=== PATIENT | female | born 1930 | race Caucasian/White ===

== ENCOUNTER 2016-05-18 08:43 | Inpatient (IN) | payer MEDICARE ==
[~2016-05-18] VITALS: Ht 165.1 cm; Wt 80.6 kg
[~2016-05-18 08:43] MED LIST: AMLO5TAB2 PO; ASPI-496 BC; ASPI-650 PO; ATOR10TA9 PO; CHOL400T2 PO; ERGO400T3 PO; FERR325T20 PO; FURO20TA3 PO; FURO40TA6 PO; GABA300C10 PO; GLIM2TAB2 PO; INSU100I13 SQ-INSULIN; INSU100I18 SQ-INSULIN; INSU100I28 SQ-INSULIN; INSU100V8 SQ; LISI-167 PO; LISI-170 PO; METO25TA35 PO; POTA10TA PO
[2016-05-18] MEDS ORDERED: PROPOFOL 100 ML IV PRN (08:57)
[2016-05-18] MEDS ORDERED: SUCCINYLCHOLINE 20 MG/ML, 10ML IVPush ONE (09:00)
[2016-05-18] MEDS ORDERED: ETOMIDATE 20 MG/10 ML IV ONE (09:00)
[2016-05-18] MEDS ORDERED: VECURONIUM 10 MG IVPush ONE (09:00)
[2016-05-18] MEDS ORDERED: ALBUTEROL 0.5%, 20ML NPPB SCH (09:30)
[2016-05-18] MEDS ORDERED: methylPREDNISolone SOD SUCC 125 MG/2 ML IVP ONE (09:30)
[2016-05-18] MEDS ORDERED: SODIUM CHLORIDE 0.9% 1,000ML IVBOLUS ONE (09:30)
[2016-05-18] MEDS ORDERED: SODIUM CHLORIDE FLUSH 10ML SYR IVF ONE (09:30)
[2016-05-18 09:42] LABS: ABG COLLECTION SITE LEFT BRACHIAL; COLLATERAL CIRCULATION TESTING NORMAL
[2016-05-18] MEDS ORDERED: methylPREDNISolone SOD SUCC 125 MG/2 ML ONE (09:50)
[2016-05-18 09:55] LABS: HEMOGLOBIN 10.9 g/dL (11.7-16.4)
[2016-05-18 10:09] LABS: ASPARTATE AMINO TRANSFERASE 25 U/L (15-37); BLOOD UREA NITROGEN 73 mg/dL (7-18)
[2016-05-18 10:14] LABS: IS PT STATUS REG ER OR PRE ER? YES
[2016-05-18] MEDS ORDERED: SUCCINYLCHOLINE 20 MG/ML, 10ML ONE ×2 (10:15→15:59)
[2016-05-18] MEDS ORDERED: MIDAZOLAM 1 MG/ML, 5ML ONE (10:15)
[2016-05-18] MEDS ORDERED: VECURONIUM 10 MG ONE ×2 (10:15→15:59)
[2016-05-18] MEDS ORDERED: PROPOFOL 10 MG/ML, 100ML IV ONE ×2 (10:15→15:59)
[2016-05-18] MEDS ORDERED: ASPI325T80 PO (10:40)
[2016-05-18] MEDS ORDERED: ALBUTEROL/IPRATROPIUM 2.5MG/0.5MG, 3 ML ONE (11:12)
[2016-05-18] MEDS: ALBUTEROL/IPRATROPIUM 2.5MG/0.5MG, 3 ML NPPB SCH ×3 (11:34→23:00)
[2016-05-18] MEDS ORDERED: DOCUSATE 100 MG CAPSULE PO PRN (12:00)
[2016-05-18] MEDS ORDERED: OXYcodone IR 5MG TABLET PO PRN (12:00)
[2016-05-18] MEDS ORDERED: LORazepam 2 MG/ML, 1ML IVPush PRN (12:00)
[2016-05-18] MEDS ORDERED: MORPHINE SULFATE 4 MG/ML, 1ML IVPush PRN (12:00)
[2016-05-18] MEDS ORDERED: ACETAMINOPHEN 325 MG TABLET PO PRN (12:00)
[2016-05-18] MEDS ORDERED: ENOXAPARIN 40 MG/0.4 ML SQ SCH (12:00)
[2016-05-18] MEDS ORDERED: POLYETHYLENE GLYCOL 17 GM PACKET PO PRN (12:00)
[2016-05-18] MEDS ORDERED: ONDANSETRON 2MG/ML, 2ML IVP PRN (12:00)
[2016-05-18] MEDS ORDERED: ENALAPRILAT 1.25 MG/ML, 2ML IVPush PRN (12:00)
[2016-05-18] MEDS: CEFTRIAXONE PMX 1GM/50ML 50 ML IV SCH (12:46)
[2016-05-18 12:58] VITALS: BP 150/45
[2016-05-18] MEDS ORDERED: MIDAZOLAM HCL 25 MG in SODIUM CHLORIDE 0.9% 245 ML IV PRN (14:00)
[2016-05-18] MEDS: methylPREDNISolone SOD SUCC 125 MG/2 ML IVPush SCH ×2 (15:17→22:13)
[2016-05-18] MEDS: INSULIN REGULAR 100 UNITS/ML, 3ML VIAL SQ-INSULIN SCH ×3 (15:17→20:33)
[2016-05-18] MEDS ORDERED: INSULIN REGULAR 100 UNITS/ML, 3ML VIAL SQ-INSULIN ONE (15:20)
[2016-05-18] MEDS ORDERED: ETOMIDATE 20 MG/10 ML ONE (15:59)
[2016-05-18] MEDS ORDERED: BISACODYL 10 MG SUPP PR PRN (16:30)
[2016-05-18] MEDS ORDERED: SENNA/DOCUSATE TABLET NG PRN (16:30)
[2016-05-18] MEDS ORDERED: SENNOSIDES 8.8 MG/5 ML ORAL SOL NG PRN (16:30)
[2016-05-18] MEDS ORDERED: FENTANYL PF 100 MCG/2ML IVPush PRN (16:30)
[2016-05-18] MEDS ORDERED: LACTULOSE 20 GM/30 ML UDC NG PRN (16:30)
[2016-05-18] MEDS ORDERED: LIDOCAINE-MPF 1%, 2ML ENDO PRN (16:30)
[2016-05-18] MEDS ORDERED: MIDAZOLAM 1 MG/ML, 2ML IVPush PRN (16:30)
[2016-05-18] MEDS ORDERED: PHARMACY MAY ADJ FOR RENAL FX MC SCH (16:30)
[2016-05-18] MEDS ORDERED: PROPOFOL 100 ML IV ONE (16:36)
[2016-05-18] MEDS ORDERED: FUROSEMIDE 40 MG/4 ML IV SCH (17:00)
[2016-05-18] MEDS: PROPOFOL 100 ML IV PRN (17:01)
[2016-05-18] MEDS: ALBUTEROL/IPRATROPIUM 2.5MG/0.5MG, 3 ML INLINE SCH ×2 (18:25→22:00)
[2016-05-18] MEDS: SODIUM CHLORIDE FLUSH 10ML SYR IVF SCH (20:22)
[2016-05-18] MEDS: INSULIN DETEMIR 100 UNITS/ML, PEN SQ-INSULIN SCH (20:23)
[2016-05-18] MEDS ORDERED: SODIUM CHLORIDE 0.9%, 500ML IVBOLUS ONE ×2 (21:30→23:30)
[2016-05-18] MEDS: AZITHROMYCIN 500 MG in SODIUM CHLORIDE 0.9% 250 ML IV SCH (22:13)
[2016-05-18] MEDS: SODIUM CHLORIDE 0.9% 1,000 ML IV SCH (23:10)
[2016-05-19] MEDS: ALBUTEROL/IPRATROPIUM 2.5MG/0.5MG, 3 ML INLINE SCH ×6 (01:50→21:53)
[2016-05-19 04:25] LABS: ABG COLLECTION SITE LEFT RADIAL; COLLATERAL CIRCULATION TESTING NORMAL
[2016-05-19 04:26] LABS: HEMOGLOBIN 10.2 g/dL (11.7-16.4)
[2016-05-19] MEDS: INSULIN REGULAR 100 UNITS/ML, 3ML VIAL SQ-INSULIN SCH ×4 (04:34→21:03)
[2016-05-19] MEDS: methylPREDNISolone SOD SUCC 125 MG/2 ML IVPush SCH ×3 (04:35→21:02)
[2016-05-19 04:39] LABS: ASPARTATE AMINO TRANSFERASE 19 U/L (15-37); BLOOD UREA NITROGEN 79 mg/dL (7-18)
[2016-05-19] MEDS ORDERED: POTASSIUM CHLORIDE 10% 40 MEQ/30 ML UDC PO ONE (06:00)
[2016-05-19] MEDS ORDERED: SODIUM CHLORIDE 0.9%, 500ML IVBOLUS ONE (06:00)
[2016-05-19 06:10] VITALS: BP 128/39
[2016-05-19] MEDS: SODIUM CHLORIDE 0.9% 1,000 ML IV SCH ×2 (06:10→19:05)
[2016-05-19] MEDS: ALBUMIN HUMAN 25% 100 ML IV SCH ×3 (06:16→22:14)
[2016-05-19] MEDS: PROPOFOL 100 ML IV PRN (08:21)
[2016-05-19] MEDS: SODIUM CHLORIDE FLUSH 10ML SYR IVF SCH ×2 (08:24→21:02)
[2016-05-19] MEDS: INSULIN DETEMIR 100 UNITS/ML, PEN SQ-INSULIN SCH (08:28)
[2016-05-19] MEDS: PANTOPRAZOLE 40 MG IV IVP SCH (08:29)
[2016-05-19] MEDS ORDERED: POTASSIUM CHLORIDE 10% 20 MEQ/15 ML UDC PO SCH (09:00)
[2016-05-19] MEDS: CEFTRIAXONE PMX 1GM/50ML 50 ML IV SCH (12:34)
[2016-05-19] MEDS ORDERED: ENOXAPARIN 30 MG/0.3 ML SQ SCH (13:00)
[2016-05-19] MEDS ORDERED: INSULIN DETEMIR 100 UNITS/ML, PEN SQ-INSULIN SCH (21:00)
[2016-05-19] MEDS: AZITHROMYCIN 500 MG in SODIUM CHLORIDE 0.9% 250 ML IV SCH (21:02)
[2016-05-20] MEDS: ALBUTEROL/IPRATROPIUM 2.5MG/0.5MG, 3 ML INLINE SCH ×2 (01:52→06:45)
[2016-05-20] MEDS: SODIUM CHLORIDE 0.9% 1,000 ML IV SCH (02:40)
[2016-05-20] MEDS: ALBUMIN HUMAN 25% 100 ML IV SCH (04:43)
[2016-05-20] MEDS: INSULIN REGULAR 100 UNITS/ML, 3ML VIAL SQ-INSULIN SCH ×2 (04:43→10:13)
[2016-05-20 04:51] VITALS: BP 149/49
[2016-05-20 05:47] LABS: HEMOGLOBIN 8.9 g/dL (11.7-16.4)
[2016-05-20 05:48] LABS: ABG COLLECTION SITE LEFT BRACHIAL
[2016-05-20 06:01] LABS: BLOOD UREA NITROGEN 81 mg/dL (7-18)
[2016-05-20] MEDS ORDERED: MEROPENEM 1 GM in SODIUM CHLORIDE 0.9% 100 ML IV SCH (07:30)
[2016-05-20] MEDS: PANTOPRAZOLE 40 MG IV IVP SCH (08:17)
[2016-05-20] MEDS ORDERED: FUROSEMIDE 40 MG/4 ML IV ONE (08:30)
[2016-05-20] MEDS ORDERED: POTASSIUM CHLORIDE 10% 40 MEQ/30 ML UDC PO ONE (08:30)
[2016-05-20] MEDS ORDERED: ALBUMIN HUMAN 25% 100 ML IV ONE (08:30)
[2016-05-20] MEDS: SODIUM CHLORIDE FLUSH 10ML SYR IVF SCH (09:00)
[2016-05-20] MEDS ORDERED: INSULIN DETEMIR 100 UNITS/ML, PEN SQ-INSULIN SCH (09:00)
[2016-05-20] MEDS: methylPREDNISolone SOD SUCC 125 MG/2 ML IVPush SCH (10:12)
[2016-05-20] MEDS ORDERED: LORazepam 2 MG/ML, 1ML ONE (12:27)
[2016-05-20] MEDS ORDERED: ATROPINE OPHTH SOLN 1%, 5ML PO PRN (12:30)
[2016-05-20] MEDS ORDERED: LORazepam 2 MG/ML, 1ML IVPush PRN (12:30)
== END 2016-05-20 14:53 | disposition expired | DRG 208 ==
LOC: ED 09:50 → EDIP 10:27 → CCU 11:28
PROVIDERS: ADMIT Internal Medicine; ATTEND Internal Medicine
PROC: 0T9B70Z Drainage of Bladder with Drainage Device, Via Natural or Artificial Opening (ICD-10-PCS; 2016-05-18)
PROC: 5A1945Z Respiratory Ventilation, 24-96 Consecutive Hours (ICD-10-PCS; principal; 2016-05-19)
PROC: 0BH17EZ Insertion of Endotracheal Airway into Trachea, Via Natural or Artificial Opening (ICD-10-PCS; 2016-05-19)
DX: J96.01 Acute respiratory failure with hypoxia (principal); I50.33 Acute on chronic diastolic (congestive) heart failure; E43 Unspecified severe protein-calorie malnutrition; I13.0 Hypertensive heart and chronic kidney disease with heart failure and stage 1 through stage 4 chronic kidney disease, or unspecified chronic kidney disease; J44.1 Chronic obstructive pulmonary disease with (acute) exacerbation; N18.4 Chronic kidney disease, stage 4 (severe); N39.0 Urinary tract infection, site not specified; N17.9 Acute kidney failure, unspecified; D63.1 Anemia in chronic kidney disease; E11.22 Type 2 diabetes mellitus with diabetic chronic kidney disease; E11.65 Type 2 diabetes mellitus with hyperglycemia; Z51.5 Encounter for palliative care; E78.5 Hyperlipidemia, unspecified; D32.9 Benign neoplasm of meninges, unspecified; I08.0 Rheumatic disorders of both mitral and aortic valves; Z79.4 Long term (current) use of insulin; Z86.011 Personal history of benign neoplasm of the brain; Z87.891 Personal history of nicotine dependence; Z88.8 Allergy status to other drugs, medicaments and biological substances; Z91.041 Radiographic dye allergy status; Z68.29 Body mass index [BMI] 29.0-29.9, adult; Z66 Do not resuscitate; G89.29 Other chronic pain
CPT/HCPCS: 36415; 36600; 71010; 76770; 80048; 80053; 81001; 82565; 82803; 82962; 83605; 83735; 83880; 84100; 84478; 84484; 85025; 85610; 85730; 87040; 87070; 87077; 87081; 87086; 87186; 87205; 93005; 93308; 93321; 93325; 94002; 94003; 94640; 96361; 96374; 96375; J0456; J0696; J1650; J1815; J1940; J2185; J2250; J2704; J3010; J7620; P9047; C9113; J0330; J2060; J2930; J7030; J7040; J7050